=== PATIENT | female | born 1970 | race American Indian/Alaskan Native ===

== ENCOUNTER 2021-05-17 07:56 | Emergency (ER) | payer SELFPAY ==
--- NOTE | 2021-05-17 08:59 | XRay Report ---
CHEST 2 VIEWS INDICATION / CLINICAL INFORMATION: chest pain. COMPARISON: None available. FINDINGS: SUPPORT DEVICES: None. HEART / MEDIASTINUM: No significant abnormality. LUNGS / PLEURA: No significant pulmonary or pleural abnormality. No pneumothorax. ADDITIONAL FINDINGS: No significant additional findings. IMPRESSION: 1. No acute findings. Signer Name: Kamari Nolan DO Signed: 05/17/2021 8:54 AM Workstation Name: [id number]
[2021-05-17 09:18] LABS: Hematocrit 41.1 % (30.3-42.9); Hemoglobin 13.2 gm/dl (10.1-14.3); Mean Corpuscular HGB Conc 32 % (30-34); Mean Corpuscular Volume 98 fl (79-97); Platelet Count 349 K/mm3 (140-440); Red Blood Count 4.21 M/mm3 (3.65-5.03); Red Cell Distribution Width 13.3 % (13.2-15.2)
[2021-05-17 09:35] LABS: Alanine Aminotransferase 12 units/L (7-56); Albumin 4.6 g/dL (3.9-5); BUN/Creatinine Ratio 20; Blood Urea Nitrogen 16 mg/dL (7-17); Calcium 9.2 mg/dL (8.4-10.2); Hemolysis Index 6
[2021-05-17] MEDS ORDERED: LIDOCAINE VISCOUS 2% 15 ML ORAL LIQD PO ONE (10:33)
[2021-05-17] MEDS ORDERED: ALUM-MAG HYDROXIDE-SIMETHICONE 200-200-20MG/5ML ORAL LIQD 30 ML PO ONE (10:33)
[2021-05-17] MEDS ORDERED: DICYCLOMINE 10 MG/5 ML ORAL LIQD PO ONE (10:33)
--- NOTE | 2021-05-17 10:34 | Emergency Department Report ---
ED Chest Pain HPI - General Chief Complaint: Chest Pain Stated Complaint: CHEST PAIN Time Seen by Provider: 05/17/21 09:53 Source: patient Mode of arrival: Ambulatory Limitations: No Limitations - History of Present Illness Initial Comments: 50-year-old black female with a past medical history of anxiety and depression presents to the emergency department for evaluation of left chest pain that started last night. She states that she has been having pain all night long pain only to the left chest nonradiating and nonreproducible. She states that she has had some shortness of breath, nausea, and diaphoresis with her chest pain. She denies dizziness. She states that the pain at its worse is 8 out of 10. She states the pain is pressure and has been persistent all night and she has been unable to get any sleep. -: Sudden, days(s) (1) Onset: during rest Pain Location: substernal Pain Radiation: none Severity: severe Severity scale (0 -10): 10 Quality: pressure Consistency: constant Improves With: nothing Worsens With: nothing re: diaphoresis, dyspnea. denies: vomting, sense of impending doom Other Symptoms: denies: cough, fever, syncope, rash, acid taste in mouth, leg swelling, palpitations Treatments Prior to Arrival: none Aspirin use within the Past 7 Days: (0) No - Related Data Allergies Allergy/AdvReac Type Severity Reaction Status Date / Time No Known Allergies Allergy Unverified 05/17/21 08:04 Heart Score - HEART Score History: Moderately suspicious EKG: Normal Age: 45-65 Risk factors: 1-2 risk factors Troponin: < normal limit HEART Score: 3 - EKG Read Time Time EKG Completed: 08:10 EKG Read Time: 08:15 - Critical Actions Critical Actions: 0-3 pts:0.9-1.7%risk of adverse cardiac event.Candidate for discharge ED Review of Systems ROS: Stated complaint: CHEST PAIN Other details as noted in HPI Comment: All other systems reviewed and negative Constitutional: diaphoresis. denies: chills, fever Respiratory: shortness of breath. denies: cough, SOB with exertion, SOB at rest, wheezing Cardiovascular: chest pain. denies: palpitations, dyspnea on exertion, orthopnea, edema, syncope, paroxysmal nocturnal dyspnea Gastrointestinal: nausea. denies: abdominal pain, vomiting Musculoskeletal: denies: back pain Neurological: denies: headache, weakness Psychiatric: denies: anxiety ED Physical Exam - General Limitations: No Limitations General appearance: alert, in no apparent distress - Head Head exam: Present: atraumatic, normocephalic - Eye Eye exam: Present: normal appearance. Absent: conjunctival injection - Neck Neck exam: Present: normal inspection. Absent: lymphadenopathy - Respiratory Respiratory exam: Present: normal lung sounds bilaterally. Absent: respiratory distress, wheezes, rales, rhonchi, stridor, chest wall tenderness, accessory muscle use - Cardiovascular Cardiovascular Exam: Present: regular rate, normal rhythm, normal heart sounds - GI/Abdominal GI/Abdominal exam: Present: soft, normal bowel sounds. Absent: distended, tenderness, guarding, rebound, rigid - Extremities Exam Extremities exam: Present: normal inspection - Back Exam Back exam: Present: normal inspection. Absent: CVA tenderness (R), CVA tenderness (L) - Neurological Exam Neurological exam: Present: alert, oriented X3 - Psychiatric Psychiatric exam: Present: normal affect, normal mood - Skin Skin exam: Present: warm, dry, intact, normal color ED Course Vital Signs 05/17/21 05/17/21 08:01 13:12 Temperature 98.3 F Pulse Rate 68 62 Respiratory 18 16 Rate Blood Pressure 146/87 153/90 [Right] O2 Sat by Pulse 100 100 Oximetry - Reevaluation(s) Reevaluation #1: 05/17/21 12:46 Patient states that chest pain has resolved after GI cocktail. She is without any symptoms at this time. DENNIS score - Dennis Score Age > 65: (0) No Aspirin use within the Past 7 Days: (0) No 3 or more CAD Risk Factors: (0) No 2 or more Angina events in past 24 hrs: (1) Yes Known CAD with more than 50% Stenosis: (0) No Elevated Cardiac Markers: (0) No ST Deviation Greater than 0.5mm: (0) No DENNIS Score: 1 ED Medical Decision Making - Lab Data Result diagrams: 05/17/21 08:45 05/17/21 08:45 - EKG Data Interpretation: no acute changes, normal EKG - Radiology Data Radiology results: report reviewed, image reviewed interpreted by me: Chest xray: Impression: 1. no acute findings noted. - Medical Decision Making 50-year-old black female with a past medical history of anxiety and depression presents to the emergency department for evaluation of left chest pain that started last night. She states that she has been having pain all night long pain only to the left chest nonradiating and nonreproducible. She states that she has had some shortness of breath, nausea, and diaphoresis with her chest pain. She denies dizziness. She states that the pain at its worse is 8 out of 10. She states the pain is pressure and has been persistent all night and she has been unable to get any sleep. No acute abnormalities noted on exam, EKG with acute ischemic changes noted, CXR wnl and troponin wnl X2. Pain was totallyl resolved after GI cocktail. Low suspicion for CAD. Patient was advised to follow up with pcp and cardiology for further evaluation and management. She verbalized understanding of and agreement with plan of care. Critical care attestation.: If time is entered above; I have spent that time in minutes in the direct care of this critically ill patient, excluding procedure time. ED Disposition Clinical Impression: Chest pain Qualifiers: Chest pain type: unspecified Qualified Code(s): R07.9 - Chest pain, unspecified Disposition: 01 HOME / SELF CARE / HOMELESS Is pt being admited?: No Does the pt Need Aspirin: No Condition: Stable Instructions: Heartburn, [id number], Nonspecific Chest Pain, Adult Additional Instructions: Follow-up with cardiology for further evaluation and management. Referrals: JANICE SÁNCHEZ MD [Staff Physician] - 3-5 Days Forms: Work/School Release Form(ED) Time of Disposition: 12:48
[2021-05-17 10:36] LABS: INR 0.91 (0.87-1.13)
[2021-05-17 13:13] VITALS: BP 153/90
--- NOTE | 2021-05-19 08:56 | Electrocardiograph Report ---
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
== END 2021-05-17 13:13 | disposition home or self-care (01) ==
LOC: ED 07:56
DX: R07.89 Other chest pain (principal)
CPT/HCPCS: 36415; 71046; 80053; 84484; 85027; 85610; 85730; 93005; 99284